=== PATIENT | female | born 1965 | race Caucasian/White ===

== ENCOUNTER → 2016-07-22 | Outpatient (CLI) | payer OTHER ==
[~2016-07-22] VITALS: Ht 160 cm; Wt 75.3 kg
[~2016-07-22] MED LIST: ASCORBIC ACID100 MG PO; CALCIUM 500 MG1 EACH PO; CELEXA20 MG PO; MAGNESIUM100 MG PO; MAXALT10 MG PO; MULTI-DAY VITA1 EACH PO; NEXIUM40 MG PO; OMEPRAZOLE40 M1 PO; PRILOSEC40 MG PO; TOPAMAX50 MG PO; TURMERIC500 M1 PO
== END | disposition home or self-care (01) ==
LOC: AMB 07:22
PROC: 0DJD8ZZ Inspection of Lower Intestinal Tract, Via Natural or Artificial Opening Endoscopic (ICD-10-PCS; principal; 2016-07-22)
DX: Z12.11 Encounter for screening for malignant neoplasm of colon (principal); K21.9 Gastro-esophageal reflux disease without esophagitis; F41.8 Other specified anxiety disorders; G47.30 Sleep apnea, unspecified; Z87.891 Personal history of nicotine dependence
CPT/HCPCS: J2250; J3010